=== PATIENT | female | born 1965 | race African-American/Black ===

== ENCOUNTER 2022-03-04 09:10 | Day surgery (SDC) | payer BC ==
[~2022-03-04] VITALS: Ht 165.1 cm; Wt 109.3 kg
[2022-03-04 09:28] LABS: HCG,QUAL RESULT NEGATIVE (NEGATIVE)
[2022-03-04] MEDS ORDERED: METOCLOPRAMIDE HCL 10 MG/2 ML VIAL ONE (11:40)
[2022-03-04] MEDS ORDERED: MIDAZOLAM HCL 5 MG/ML VIAL (VERSED) IV ONE (11:40)
[2022-03-04] MEDS ORDERED: ONDANSETRON HCL 4 MG/2 ML VIAL ONE (11:40)
[2022-03-04] MEDS ORDERED: PROPOFOL 200MG/ 20ML VIAL (DIPRIVAN) IV ONE (11:40)
[2022-03-04] MEDS ORDERED: SEVOFLURANE 15 MIN GAS INH ONE (11:40)
[2022-03-04] MEDS ORDERED: DEXAMETHASONE SOD PHOSPHATE 4 MG/ML VIAL ONE (11:40)
[2022-03-04] MEDS ORDERED: GLYCOPYRROLATE 0.2 MG/ML VIAL ONE (11:40)
[2022-03-04] MEDS ORDERED: fentaNYL CITRATE 250 MCG/5 ML AMP ONE (11:40)
[2022-03-04] MEDS ORDERED: NS 1000 ML IV.SOLN IV ONE (11:40)
[2022-03-04] MEDS ORDERED: KETOROLAC TROMETHAMINE 30 MG VIAL ONE (11:40)
[2022-03-04] MEDS ORDERED: LR 1,000 ML IV.SOLN IV ONE (11:40)
[2022-03-04] MEDS ORDERED: KETOROLAC TROMETHAMINE 30 MG VIAL IVP PRN (12:00)
[2022-03-04] MEDS ORDERED: NACL 0.9% 1,000 ML IV SCH (12:00)
[2022-03-04] MEDS ORDERED: ONDANSETRON HCL 4 MG/2 ML VIAL IVP PRN (12:00)
[2022-03-04] MEDS ORDERED: MEPERIDINE HCL/PF 25 MG/ML DISP.SYRIN IVP PRN (12:00)
[2022-03-04] MEDS ORDERED: NALOXONE HCL 0.4 MG/ML AMP (NARCAN) IVP PRN (12:00)
[2022-03-04 13:40] VITALS: BP_SYST 142
== END 2022-03-04 13:25 | disposition home or self-care (01) ==
LOC: SDS 09:10 → SMU 09:12 → SDS 13:25
PROVIDERS: ATTEND Obstetrics & Gynecology
DX: N92.0 Excessive and frequent menstruation with regular cycle (principal); N84.1 Polyp of cervix uteri; E66.01 Morbid (severe) obesity due to excess calories; F17.210 Nicotine dependence, cigarettes, uncomplicated; Z88.0 Allergy status to penicillin; Z88.5 Allergy status to narcotic agent; Z68.41 Body mass index [BMI] 40.0-44.9, adult; Z20.822 Contact with and (suspected) exposure to COVID-19; Z79.899 Other long term (current) drug therapy
CPT/HCPCS: 36415 ×2; 58558; 84703; 86886; 86900; 86901; 87426; 88305; C1819; J1100; J1885; J2250; J2405; J2704; J2765; J3010; J3490; J7030; J7120; U0003